=== PATIENT | male | born 1935 | race Caucasian/White ===

== ENCOUNTER 2016-11-26 08:37 | Day surgery (SDC) | payer MEDICARE, BC ==
[~2016-11-26] VITALS: Ht 177.8 cm; Wt 92.0 kg
[~2016-11-26 08:37] MED LIST: ACET325 PO; ALLO300T2 PO; CLIN1CAP6 PO; DIGO.25 PO; ECOT81TA2 PO; LIPI10TA PO; METO25 PO; PROT40TA PO; WARF2.5 PO
[2016-11-26] MEDS ORDERED: CARV3.12 PO (08:49)
[2016-11-26 09:04] VITALS: BP 131/104; PULSE 117; RESP 18; TEMP 97.8; O2SAT 95
[2016-11-26 09:10] LABS: AUTOMATED NEUTROPHIL # 4.2 TH/MM3 (1.8-7.7); BASOPHIL % 0.8 % (0.0-2.0); EOSINOPHIL # 0.3 TH/MM3 (0-0.4); EOSINOPHIL % 4.8 % (0.0-4.0); HEMATOCRIT 41.6 % (39.0-51.0); HEMO FLAGS DIFF FINAL; LYMPH % 14.7 % (9.0-44.0); LYMPHOCYTE # 0.9 TH/MM3 (1.0-4.8); MEAN CELL VOLUME 95.6 FL (80.0-100.0); MEAN CORPUSCULAR HEMOGLOBIN 31.6 PG (27.0-34.0); MONO % 10.2 % (0.0-8.0); NEUT % 69.5 % (16.0-70.0); PLATELET COUNT 146 TH/MM3 (150-450); RED BLOOD COUNT 4.35 MIL/MM3 (4.50-5.90); RED CELL DISTRIBUTION WIDTH 18.3 % (11.6-17.2); WHITE BLOOD COUNT 6.1 TH/MM3 (4.0-11.0)
[2016-11-26] MEDS ORDERED: SODIUM BICARBONATE 100 MEQ in D5W 1000 ML IV SCH (09:15)
[2016-11-26 09:24] LABS: APTT (PATIENT) 31.7 SEC (24.3-30.1); BICARBONATE 27.9 MEQ/L (21.0-32.0); POTASSIUM 3.8 MEQ/L (3.5-5.1); PROTHROMBIN TIME - PATIENT 22.4 SEC (9.8-11.6)
--- NOTE | 2016-11-26 09:53 | HHI.HP ---
History of Present Illness Chief Complaint: R LE pain with ambulation History of Present Illness 81 yo male with PAD and R LE pain with ambulation. Previously had R LE stent placed with resolution of pain. No rest pain/TL. Atherosclerotic risk factors of CAD, age, HTN, XOL. Past/Family/Social History Past Medical History CAD OA gout XOL Past Surgical History CABG eye surgery ortho procedures Social History former smoker Home Medications Active Scripts Digoxin 0.25 Mg Tab0.25 Mg PO DAILY #30 TAB Ref 1 Prov:Peter Ramon MD 02/02/15 Aspirin (Ecotrin Low Strength)81 Mg Tabec81 Mg PO DAILY@18 #30 TAB.EC Ref 1 Prov:Peter Ramon MD 01/03/15 Warfarin Sod (Coumadin)2.5 Mg Tab2.5 Mg PO DAILY@1600 #30 TAB Ref 1 Prov:Peter Ramon MD 01/03/15 Atorvastatin (Lipitor 10 Mg Tab)10 Mg Tab1 Tab PO HS #30 TAB Ref 1 Prov:Peter Ramon MD 01/03/15 Allopurinol 300 Mg Kff016 Mg PO DAILY #30 TAB Ref 1 Prov:Peter Ramon MD 01/03/15 Reported Medications Carvedilol 3.125 Mg Tab3.125 Mg PO BID #60 TAB Ref 0 11/26/16 Coded Allergies: Metoprolol (Verified Allergy, Severe, 11/26/16) Pradaxa (Verified Allergy, Severe, 03/01/15) Pletal (Verified Adverse Reaction, Unknown, SEVERE HEADACHE, 03/01/15) Review of Systems Constitutional: DENIES: Diaphoretic episodes, Fatigue, Fever, Weight gain, Weight loss, Chills, Dizziness, Change in appetite, Night Sweats Respiratory: DENIES: Apneas, Cough, Snoring, Wheezing, Hemoptysis, Sputum production, Shortness of breath Cardiovascular: DENIES: Chest pain, Palpitations, Syncope, Dyspnea on Exertion , PND, Lower Extremity Edema, Orthopnea, Claudication Musculoskeletal: COMPLAINS OF: Joint pain, Joint Swelling, Back pain Physical Exam Vitals/I&O Date Time Temp Pulse Resp B/P Pulse Ox O2 Delivery O2 Flow Rate FiO2 11/26/16 09:04 97.8 117 18 131/104 95 Neuro: alert, oriented, BECKMAN HEENT: NC/AT Neck: trachea midline Heart: irreg rate Lungs: clear B Vascular: palp femoral pulses Laboratory Tests Test 11/26/16 08:57 White Blood Count 6.1 Red Blood Count 4.35 Hemoglobin 13.7 Hematocrit 41.6 Mean Corpuscular Volume 95.6 Mean Corpuscular Hemoglobin 31.6 Mean Corpuscular Hemoglobin 33.0 Concent Red Cell Distribution Width 18.3 Platelet Count 146 Mean Platelet Volume 7.8 Neutrophils (%) (Auto) 69.5 Lymphocytes (%) (Auto) 14.7 Monocytes (%) (Auto) 10.2 Eosinophils (%) (Auto) 4.8 Basophils (%) (Auto) 0.8 Neutrophils # (Auto) 4.2 Lymphocytes # (Auto) 0.9 Monocytes # (Auto) 0.6 Eosinophils # (Auto) 0.3 Basophils # (Auto) 0.0 CBC Comment DIFF FINAL Differential Comment Prothrombin Time 22.4 Prothromb Time International 2.0 Ratio Activated Partial 31.7 Thromboplast Time Sodium Level 139 Potassium Level 3.8 Chloride Level 102 Carbon Dioxide Level 27.9 Anion Gap 9 Blood Urea Nitrogen 20 Creatinine 1.20 Estimat Glomerular Filtration 58 Rate Random Glucose 103 Calcium Level 8.9 Assessment and Plan Plan R LE claudication, likely SFA occlusion Plan for R LE angiogram Consent S&OC Zaki Parker MD Nov 26, 2016 09:53
[2016-11-26] MEDS ORDERED: IOHEXOL 350 MG/ML 50 ML BTL (for Cath Lab) OTHER ONE (10:21)
[2016-11-26] MEDS ORDERED: MIDAZOLAM HCL 2 MG/2 ML VIAL ONE (10:22)
[2016-11-26] MEDS ORDERED: HEPARIN-NS/PF INJ 500 ML ONE (10:22)
[2016-11-26] MEDS ORDERED: HEPARIN SODIUM - IV 10,000 UNITS/10 ML VIAL ONE (10:22)
--- NOTE | 2016-11-26 11:10 | HHI.PR ---
Immediate Post Op Note Procedure Date: Nov 26, 2016 Pre Op Diagnosis: R LE PAD, claudication Post Op Diagnosis: R LE PAD, claudication Surgeon: Zaki Parker Message And Delivery Service Pricer(s): none Procedure: Aortogram w/ R LE angiogram U/S guided access to [facility] Findings: occluded R SFA (TASC D) very calcified Additional Information: [facility] Angioseal Complications: none Specimen(s) removed: none Estimated blood loss: 10 mL Anesthesia: MAC Drains: None Patient to: Other (DOCU) Implant/Devices: SEE IMPLANT LOG (if applicable) Date/Time of Procedure: SEE SURGICAL CARE RECORD Zaki Parker MD Nov 26, 2016 11:10
--- NOTE | 2016-11-29 14:35 | MP ---
cc: MICHAEL PARKER MD DATE OF SURGERY: 11/26/2016 PREOPERATIVE DIAGNOSIS Right lower extremity claudication, peripheral arterial occlusive disease. POSTOPERATIVE DIAGNOSIS Right lower extremity claudication, peripheral arterial occlusive disease. PROCEDURE Aortogram with right lower extremity angiogram. ATTENDING SURGEON Michael Parker ANESTHESIA Local with sedation. INDICATIONS Mr. Molina is an 81-year-old gentleman who has right lower extremity claudication. He is taken to the operating room for angiographic evaluation and potentially treatment. There is no prior catheter-based imaging available for my review. DESCRIPTION OF PROCEDURE Informed consent was obtained from the patient. He was taken to the operating room and placed supine on the operating table. An appropriate timeout was taken to ensure the patient's identity, the operative site and planned procedure. The administration of antibiotics was not necessary as this was a clean procedure without planned implantation of any foreign object. Everyone in the room agreed with the timeout and we proceeded. Under ultrasonographic guidance the left common femoral artery was accessed with a 21-gauge micropuncture needle. This was exchanged using a Seldinger technique for a micropuncture sheath through which a 0.035 Glidewire was introduced. The micropuncture sheath was exchanged for a 5 Welsh sheath and a VCF catheter was placed over the wire into the sheath and aortogram and pelvic arteriograms obtained. The Glidewire was navigated down to the right common femoral artery. The VCF catheter was attempted to be passed across but because of tortuosity and calcifications, we had to go with a Berenstein slip catheter and this was navigated down into the right common femoral artery and the a right lower extremity angiogram was obtained. The wire, catheter and sheath were removed. The groin was closed with an Angio-Seal. There were no complications. I was present and scrubbed and performed the entire procedure. INTERPRETATION OF IMAGES The patient has patent, alignment aneurysmal infrarenal aorta. The common iliac arteries, external iliac arteries and hypogastric arteries are all widely patent, although densely calcified. The common femoral artery and profunda are patent on the right. The SFA occludes immediately after its takeoff and then reconstitutes via profunda based collaterals at the popliteal artery and there is three-vessel runoff to the foot. MD EDER Rivera/MELLISA /12:14 PM /2:12 PM [email or web address]
== END 2016-11-26 13:41 | disposition home or self-care (01) ==
LOC: HDIC 08:37 → HDOC 08:37
PROVIDERS: ATTEND Surgery
DX: I70.211 Atherosclerosis of native arteries of extremities with intermittent claudication, right leg (principal); I25.10 Atherosclerotic heart disease of native coronary artery without angina pectoris; I10 Essential (primary) hypertension; M10.9 Gout, unspecified; Z79.01 Long term (current) use of anticoagulants; Z79.82 Long term (current) use of aspirin; Z95.1 Presence of aortocoronary bypass graft; Z87.891 Personal history of nicotine dependence
CPT/HCPCS: 36246; 75625; 75710; 80048; 85025; 85610; 85730; C1769; C1893; J1644; J2250; J3010; Q9967

== ENCOUNTER 2018-10-08 11:01 | Inpatient (IN) ==
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
--- NOTE | 2018-10-08 11:57 | XR ---
EXAM DATE: 10/08/2018 11:41 AM EST AGE/SEX: 83 years / Male INDICATIONS: Short of breath for over a week. CLINICAL DATA: This is the patient's initial encounter. Patient reports that signs and symptoms have been present for 1 month and indicates a pain score of 0/10. MEDICAL/SURGICAL HISTORY: Hypercholesterolemia. Hypertension. A-fib. Gout. Former smoker. CAB G. Total knee replacement, right. Back surgery. COMPARISON: POI, XR CHEST PA AND LAT, 10/01/2018. . FINDINGS: Tracing density is identified in the right lung base. Increasing airspace disease is identified in th e left base. Heart is mildly enlarged. Postsurgical changes following CABG are noted. CONCLUSION: Increasing right pleural effusion which appears moderately large in size. Left basilar airspace disease. Underlying COPD. Electronically signed by: Jules Alfaro MD Board Certified Radiologist 10/08/2018 11:55 AM EST
[2018-10-08 11:59] LABS: Baso # (Auto) 0.1 th/mm3 (0.0-0.2); Baso % (Auto) 1.1 % (0.0-2.0); Eos # (Auto) 0.4 th/mm3 (0.0-0.4); Eos % (Auto) 5.8 % (0.0-4.0); Hemoglobin 11.5 gm/dL (13.0-17.0); Lymph # (Auto) 0.3 th/mm3 (1.0-4.8); Lymph % (Auto) 4.6 % (9.0-44.0); Mean Corpuscular HGB Conc 32.8 % (32.0-36.0); Mean Corpuscular Hemoglobin 31.6 pg (27.0-34.0); Mean Corpuscular Volume 96.3 fL (80.0-100.0); Mono # (Auto) 0.1 th/mm3 (0.0-0.9); Mono % (Auto) 1.4 % (0.0-8.0); Neut # (Auto) 6.3 th/mm3 (1.8-7.7); Neut % (Auto) 87.1 % (16.0-70.0); Platelet Count 294 th/mm3 (150-450); Red Blood Count 3.64 mil/mm3 (4.50-5.90); Red Cell Distribution Width 15.9 % (11.6-17.2); White Blood Count 7.2 th/mm3 (4.0-11.0)
[2018-10-08 12:16] LABS: Activated Partial Thrombo Time 52.3 sec (23.4-31.7); INR 2.7 Ratio; Prothrombin Time 26.8 sec (9.8-11.6)
[2018-10-08 12:22] LABS: Chloride 101 meq/L (98-107); Potassium 4.5 meq/L (3.5-5.1); Sodium 135 meq/L (136-145)
[2018-10-08 12:32] LABS: Albumin 2.9 g/dL (3.4-5.0); Anion Gap 8 meq/L (5-15); Blood Urea Nitrogen 44 mg/dL (7-18); Calcium 8.7 mg/dL (8.5-10.1); Carbon Dioxide 25.7 meq/L (21.0-32.0); Glucose,Random 106 mg/dL (74-106)
[2018-10-08 12:35] LABS: Alanine Aminotransferase 21 U/L (12-78); Aspartate Aminotransferase 21 U/L (15-37); Glomerular Filtration Rate 38 mL/min (>89)
[2018-10-08 12:37] LABS: Alkaline Phosphatase 84 U/L (45-117)
[2018-10-08 12:40] LABS: Troponin I 0.18 ng/mL (0.02-0.05)
[2018-10-08] MEDS ORDERED: Zolpidem Tartrate 5 MG Tablet PO PRN (13:05)
[2018-10-08] MEDS ORDERED: Acetaminophen 325 MG Tablet PO PRN (13:05)
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
[2018-10-08 13:49] LABS: Bilirubin,Urine Negative (Negative); Clarity,Urine Clear (Clear); Color,Urine Yellow (Yellw/Straw); Glucose,Urine (UA) Negative (Negative); Leukocyte Esterase,Urine Trace (Negative); Nitrite,Urine Negative (Negative); PH,Urine 5.5 (5.0-8.5); Urobilinogen,Urine 0.2 mg/dL (Less than 2)
[2018-10-08 13:57] LABS: RBC,Urine 0-3 /hpf (0-3)
[2018-10-08 13:58] LABS: WBC,Urine 0-5 /hpf (0-5)
[2018-10-09 06:07] LABS: Chloride 103 meq/L (98-107); INR 2.7 Ratio; Potassium 4.4 meq/L (3.5-5.1); Prothrombin Time 27.5 sec (9.8-11.6); Sodium 137 meq/L (136-145)
[2018-10-09 06:13] LABS: Calcium 8.6 mg/dL (8.5-10.1)
[2018-10-09 06:14] LABS: Albumin 2.7 g/dL (3.4-5.0); Anion Gap 9 meq/L (5-15); Blood Urea Nitrogen 42 mg/dL (7-18); Carbon Dioxide 25.4 meq/L (21.0-32.0); Glucose,Random 87 mg/dL (74-106)
[2018-10-09 06:17] LABS: Alanine Aminotransferase 21 U/L (12-78); Aspartate Aminotransferase 21 U/L (15-37); Glomerular Filtration Rate 48 mL/min (>89)
[2018-10-09 06:19] LABS: Total Protein 6.5 g/dL (6.4-8.2)
[2018-10-09 06:20] LABS: Alkaline Phosphatase 79 U/L (45-117)
[2018-10-09 06:40] LABS: Baso % (Auto) 0.5 % (0.0-2.0); Eos # (Auto) 0.5 th/mm3 (0.0-0.4); Eos % (Auto) 7.9 % (0.0-4.0); Hematocrit 34.3 % (39.0-51.0); Hemoglobin 11.1 gm/dL (13.0-17.0); Lymph # (Auto) 0.5 th/mm3 (1.0-4.8); Mean Corpuscular HGB Conc 32.6 % (32.0-36.0); Mean Corpuscular Hemoglobin 31.5 pg (27.0-34.0); Mean Corpuscular Volume 96.9 fL (80.0-100.0); Mean Platelet Volume 8.2 fL (7.0-11.0); Mono # (Auto) 0.6 th/mm3 (0.0-0.9); Mono % (Auto) 9.3 % (0.0-8.0); Neut # (Auto) 4.5 th/mm3 (1.8-7.7); Neut % (Auto) 73.3 % (16.0-70.0); Platelet Count 279 th/mm3 (150-450); Red Blood Count 3.54 mil/mm3 (4.50-5.90); Red Cell Distribution Width 16.3 % (11.6-17.2); White Blood Count 6.1 th/mm3 (4.0-11.0)
[2018-10-09] MEDS: Digoxin 125 MCG Tablet PO SCH (08:48)
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
--- NOTE | 2018-10-09 10:51 | ECG ---
Date Performed: 10/08/2018 Time Performed: 17:48:14 PTAGE: 83 years EKG: ATRIAL FIBRILLATION WITH ABERRANT CONDUCTION OR VENTRICULAR PREMATURE COMPLEXES RIGHT BUNDL E BRANCH BLOCK POSSIBLE ANTEROLATERAL MYOCARDIAL INFARCTION, AGE UNDETERMINED ABNORMAL ECG PREVIOUS TRACING : 10/08/2018 11.41 No significant change from previous tracing noted. DOCTOR: Todd Rabago Interpretating Date/Time 10/09/2018 10:50:30
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
--- NOTE | 2018-10-09 16:21 | ECG ---
Date Performed: 10/08/2018 Time Performed: 11:41:18 PTAGE: 83 years EKG: ATRIAL FIBRILLATION INDETERMINATE AXIS RIGHT BUNDLE BRANCH BLOCK POSSIBLE LATERAL MYOCARDIA L INFARCTION AGE UNDETERMINED ABNORMAL ECG PREVIOUS TRACING : 12/17/2014 07.06 Compared to previous tracing, QRS duration has increased, Q RS voltage has increased diffusely. DOCTOR: Todd Rabago Interpretating Date/Time 10/09/2018 16:19:39
[2018-10-10 07:57] LABS: Baso # (Auto) 0.1 th/mm3 (0.0-0.2); Baso % (Auto) 1.5 % (0.0-2.0); Eos # (Auto) 0.4 th/mm3 (0.0-0.4); Hematocrit 36.3 % (39.0-51.0); Hemoglobin 11.6 gm/dL (13.0-17.0); Lymph # (Auto) 0.9 th/mm3 (1.0-4.8); Lymph % (Auto) 14.1 % (9.0-44.0); Mean Corpuscular HGB Conc 32.1 % (32.0-36.0); Mean Corpuscular Volume 96.7 fL (80.0-100.0); Mean Platelet Volume 7.6 fL (7.0-11.0); Mono # (Auto) 0.6 th/mm3 (0.0-0.9); Mono % (Auto) 9.1 % (0.0-8.0); Neut # (Auto) 4.1 th/mm3 (1.8-7.7); Neut % (Auto) 68.3 % (16.0-70.0); Platelet Count 282 th/mm3 (150-450); Red Blood Count 3.75 mil/mm3 (4.50-5.90); Red Cell Distribution Width 16.1 % (11.6-17.2); White Blood Count 6.1 th/mm3 (4.0-11.0)
[2018-10-10 08:09] LABS: Potassium 4.4 meq/L (3.5-5.1)
[2018-10-10 08:11] LABS: Calcium 8.8 mg/dL (8.5-10.1)
[2018-10-10 08:12] LABS: Carbon Dioxide 28.1 meq/L (21.0-32.0); INR 2.7 Ratio; Prothrombin Time 26.9 sec (9.8-11.6)
[2018-10-10] MEDS: Digoxin 125 MCG Tablet PO SCH (08:45)
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
[2018-10-10] MEDS ORDERED: Phytonadione 5 MG/SWFI 5 ML Oral Syringe PO ONE (10:00)
--- NOTE | 2018-10-10 15:35 | P.PN ---
Subjective Interval history: alert no sob at rest Physical Exam Vital signs: Vital Signs 10/09/18 16:00 10/09/18 16:39 10/09/18 20:00 Temperature 97.2 F L 97.6 F Pulse Rate 83 87 68 Respiratory Rate 17 17 Blood Pressure 106/73 107/58 L Pulse Oximetry 96 94 L 10/09/18 20:05 10/10/18 00:00 10/10/18 04:00 Temperature 98.1 F 96.6 F L Pulse Rate 97 H 71 Respiratory Rate 18 17 Blood Pressure 103/69 103/70 Pulse Oximetry 94 L 93 L 94 L 10/10/18 07:51 10/10/18 08:00 10/10/18 09:00 Temperature 96.9 F L Pulse Rate 83 75 Respiratory Rate 20 Blood Pressure 104/65 Pulse Oximetry 95 95 10/10/18 12:00 Temperature 98.2 F Pulse Rate 86 Respiratory Rate 20 Blood Pressure 116/65 Pulse Oximetry 94 L Intake & Output 10/09/18 10/10/18 10/10/18 18:59 06:59 18:59 Intake Total 1080 / 1080 150 / 150 Output Total 240 / 240 Balance 1080 / 1080 -90 / -90 Weight 85 kg Intake: Oral 1080 / 1080 150 / 150 Output: Urine 240 / 240 Other: # Voids 6 Date of Last Bowel Movement 10/08/18 10/09/18 # Bowel Movements 1 Narrative: GENERAL: Well-developed male in no apparent distress. SKIN: Focused skin assessment warm/dry. HEAD: Atraumatic. Normocephalic. EYES: Pupils equal and round. No scleral icterus. No injection or drainage. ENT: No nasal bleeding or discharge. Mucous membranes pink and moist. NECK: Trachea midline. No JVD. CARDIOVASCULAR: Regular rate and rhythm. Systolic murmur appreciated. RESPIRATORY: No accessory muscle use. Clear to auscultation on the left. Breath sounds diminished on the right side. GASTROINTESTINAL: Abdomen soft, non-tender, nondistended. Hepatic and splenic margins not palpable. MUSCULOSKELETAL: No obvious deformities. No clubbing. No cyanosis. No edema. NEUROLOGICAL: Awake and alert. No obvious cranial nerve deficits. Motor grossly within normal limits. Normal speech. PSYCHIATRIC: Appropriate mood and affect; insight and judgment normal. Results - Labs CBC & Chem 7: 10/10/18 06:40 10/10/18 06:40 Laboratory Results - last 24 hr 10/10/18 10/10/18 10/10/18 06:40 06:40 06:40 CBC w Diff Auto diff final WBC 6.1 RBC 3.75 L Hgb 11.6 L Hct 36.3 L MCV 96.7 MCH 31.0 MCHC 32.1 RDW 16.1 Plt Count 282 MPV 7.6 Neut % (Auto) 68.3 Lymph % (Auto) 14.1 [place] % (Auto) 9.1 H Eos % (Auto) 7.0 H Baso % (Auto) 1.5 Neut # (Auto) 4.1 Lymph # (Auto) 0.9 L [place] # (Auto) 0.6 Eos # (Auto) 0.4 Baso # (Auto) 0.1 WBC Differential . Differential Comment . PT 26.9 H INR 2.7 Sodium 136 Potassium 4.4 Chloride 102 Carbon Dioxide 28.1 Anion Gap 6 BUN 35 H Creatinine 1.30 Estimated GFR 52 L Random Glucose 87 Calcium 8.8 Microbiology 10/08/18 11:35 Blood - Peripheral Aerobic Blood Culture - Preliminary No growth in 2 days 10/08/18 11:35 Blood - Peripheral Anaerobic Blood Culture - Preliminary No growth in 2 days 10/08/18 11:42 Blood - Peripheral Aerobic Blood Culture - Preliminary No growth in 2 days 10/08/18 11:42 Blood - Peripheral Anaerobic Blood Culture - Preliminary No growth in 2 days Assessment and Plan - Plan enlarging right pleural effusion chf plan for thoracentesis when inr appropriate
[2018-10-11 07:28] LABS: INR 1.7 Ratio; Prothrombin Time 17.2 sec (9.8-11.6)
[2018-10-11] MEDS: Digoxin 125 MCG Tablet PO SCH (08:38)
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
[2018-10-11] MEDS: Heparin - SQ 10,000 UNITS/ML Vial SQ SCH ×2 (10:05→14:47)
[2018-10-11 16:47] LABS: INR 1.5 Ratio; Prothrombin Time 14.7 sec (9.8-11.6)
--- NOTE | 2018-10-11 16:51 | P.PN ---
Subjective Interval history: ALERT NAD Physical Exam Vital signs: Vital Signs 10/10/18 20:00 10/11/18 00:00 10/11/18 04:00 Temperature 98.5 F 96.7 F L 97.2 F L Pulse Rate 80 97 H 70 Respiratory Rate 20 20 20 Blood Pressure 104/63 134/74 98/53 L Pulse Oximetry 94 L 95 95 10/11/18 08:00 10/11/18 08:38 10/11/18 09:00 Temperature 96.9 F L Pulse Rate 69 86 Respiratory Rate 20 Blood Pressure 98/57 L Pulse Oximetry 95 95 10/11/18 12:00 10/11/18 12:38 10/11/18 15:58 Temperature 97.1 F L 96.1 F L Pulse Rate 75 68 71 Respiratory Rate 20 20 Blood Pressure 105/60 133/69 Pulse Oximetry 94 L 94 L Intake & Output 10/10/18 10/11/18 10/11/18 18:59 06:59 18:59 Intake Total 690 / 690 Output Total 100 / 100 Balance 690 / 690 -100 / -100 Weight 85 kg Intake: Oral 690 / 690 Output: Urine 100 / 100 Other: # Voids 5 Date of Last Bowel Movement 10/09/18 10/10/18 Narrative: GENERAL: Well-developed male in no apparent distress. SKIN: Focused skin assessment warm/dry. HEAD: Atraumatic. Normocephalic. EYES: Pupils equal and round. No scleral icterus. No injection or drainage. ENT: No nasal bleeding or discharge. Mucous membranes pink and moist. NECK: Trachea midline. No JVD. CARDIOVASCULAR: Regular rate and rhythm. Systolic murmur appreciated. RESPIRATORY: No accessory muscle use. Clear to auscultation on the left. Breath sounds diminished on the right side. GASTROINTESTINAL: Abdomen soft, non-tender, nondistended. Hepatic and splenic margins not palpable. MUSCULOSKELETAL: No obvious deformities. No clubbing. No cyanosis. No edema. NEUROLOGICAL: Awake and alert. No obvious cranial nerve deficits. Motor grossly within normal limits. Normal speech. PSYCHIATRIC: Appropriate mood and affect; insight and judgment normal. Results - Labs CBC & Chem 7: 10/10/18 06:40 10/10/18 06:40 Laboratory Results - last 24 hr 10/11/18 10/11/18 06:30 16:25 PT 17.2 H 14.7 H INR 1.7 1.5 Microbiology 10/08/18 11:35 Blood - Peripheral Aerobic Blood Culture - Preliminary No growth in 3 days 10/08/18 11:35 Blood - Peripheral Anaerobic Blood Culture - Preliminary No growth in 3 days 10/08/18 11:42 Blood - Peripheral Aerobic Blood Culture - Preliminary No growth in 3 days 10/08/18 11:42 Blood - Peripheral Anaerobic Blood Culture - Preliminary No growth in 3 days Assessment and Plan - Plan enlarging right pleural effusion chf plan for thoracentesis when inr appropriate
[2018-10-11] MEDS ORDERED: Enoxaparin Inj 80 MG/0.8 ML Syringe SQ ONE (21:00)
[2018-10-12 06:11] LABS: INR 1.4 Ratio; Prothrombin Time 13.7 sec (9.8-11.6)
[2018-10-12] MEDS: Digoxin 125 MCG Tablet PO SCH (09:09)
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
--- NOTE | 2018-10-12 14:51 | XR ---
EXAM DATE: 10/12/2018 2:44 PM EST AGE/SEX: 83 years / Male INDICATIONS: Right sided thoracentesis CLINICAL DATA: This is the patient's subsequent encounter. Patient reports that signs and symptoms h ave been present for 1 week and indicates a pain score of 0/10. MEDICAL/SURGICAL HISTORY: . Hypercholesterolemia. Hypertension. A-fib. Gout. Former smoker. . CABG. Total knee replacement, right. Back surgery. COMPARISON: [facility], CHEST 1V SINGLE AP, 10/08/2018. . FINDINGS: Sternal wires from previous bypass are noted. The heart is enlarged. There is moderate interstitial edema without significant pleural effusion or a lveolar consolidation. The portion of the bony skeleton visualized is unremarkable. CONCLUSION: Moderate congestive failure without significant pleural effusion Electronically signed by: Zahc Bass MD Board Certified Radiologist 10/12/2018 2:50 PM EST
--- NOTE | 2018-10-12 14:58 | CT ---
EXAM DATE: 10/12/2018 2:48 PM EST AGE/SEX: 83 years / Male INDICATIONS: Follow up to thoracentesis, right side. CLINICAL DATA: This is the patient's initial encounter. Patient reports that signs and symptoms have been present for 1 day and indicates a pain score of 0/10. MEDICAL/SURGICAL HISTORY: Hypercholesterolemia. Peripheral vascular disease. Cardiovascular disea se. Hypertension. CABG. Back surgery. Bilateral knee repair. RADIATION DOSE: 13.26 CTDI (mGy) COMPARISON: No prior exams available for comparison. TECHNIQUE: Multiple contiguous axial images were obtained through the chest without contrast. Image s were obtained in suspended respiration using multiple row detector helical technique. Using automa trent exposure control and adjustment of the mA and/or kV according to patient size, radiation dose was kept as low as reasonably achievable to obtain optimal diagnostic quality images. DICOM format imag e data is available electronically for review and comparison. FINDINGS: Lungs: Patchy consolidation is noted within the right lower lobe and to a much lesser extent left jody ng base consistent with possible pneumonia. Mild diffuse peripheral interstitial fibrosis is noted. Mediastinum: The heart is markedly enlarged. Coronary artery calcifications are noted. No mediastina l or hilar lymphadenopathy is noted. Pleurae: Small right pleural effusion is noted. Axillae: Unremarkable. Bony Structures: Unremarkable. Miscellaneous: The examination was extended to include the upper abdomen, and both adrenal glands ar e normal in size and configuration. CONCLUSION: 1. Small right pleural effusion. 2. Patchy consolidation is noted within the right lower lobe and to a much lesser extent left lung b ase consistent with possible pneumonia. Clinical correlation is recommended. 3. Mild diffuse peripheral interstitial fibrosis. 4. Markedly enlarged heart with coronary artery calcifications. Electronically signed by: Zaki Fleming MD Board Certified Radiologist 10/12/2018 2:56 PM EST
--- NOTE | 2018-10-12 15:57 | P.PN ---
Subjective Interval history: ALERT NO SOB THORACENTESIS DONE WELL TOLERATED Physical Exam Vital signs: Vital Signs 10/11/18 15:58 10/11/18 20:00 10/11/18 22:08 Temperature 96.1 F L 96.7 F L Pulse Rate 71 84 Respiratory Rate 20 20 Blood Pressure 133/69 131/83 Pulse Oximetry 94 L 95 92 L 10/12/18 00:00 10/12/18 00:48 10/12/18 04:00 Temperature 98.6 F 97.3 F L Pulse Rate 84 89 78 Respiratory Rate 20 18 Blood Pressure 112/68 108/61 Pulse Oximetry 96 95 10/12/18 07:53 10/12/18 08:00 10/12/18 12:00 Temperature 97.0 F L 97.7 F Pulse Rate 97 H 80 Respiratory Rate 21 20 Blood Pressure 116/72 Pulse Oximetry 95 95 96 Intake & Output 10/11/18 10/12/18 10/12/18 18:59 06:59 18:59 Intake Total 1080 / 1080 0 / 0 Output Total 120 / 120 Balance 1080 / 1080 -120 / -120 0 / 0 Weight 85 kg Intake: Oral 1080 / 1080 0 / 0 Output: Urine 120 / 120 Other: # Voids 8 Date of Last Bowel Movement 10/10/18 10/10/18 Narrative: GENERAL: Well-developed male in no apparent distress. SKIN: Focused skin assessment warm/dry. HEAD: Atraumatic. Normocephalic. EYES: Pupils equal and round. No scleral icterus. No injection or drainage. ENT: No nasal bleeding or discharge. Mucous membranes pink and moist. NECK: Trachea midline. No JVD. CARDIOVASCULAR: Regular rate and rhythm. Systolic murmur appreciated. RESPIRATORY: No accessory muscle use. Clear to auscultation on the left. Breath sounds diminished on the right side. GASTROINTESTINAL: Abdomen soft, non-tender, nondistended. Hepatic and splenic margins not palpable. MUSCULOSKELETAL: No obvious deformities. No clubbing. No cyanosis. No edema. NEUROLOGICAL: Awake and alert. No obvious cranial nerve deficits. Motor grossly within normal limits. Normal speech. PSYCHIATRIC: Appropriate mood and affect; insight and judgment normal. Results - Labs CBC & Chem 7: 10/10/18 06:40 10/10/18 06:40 Laboratory Results - last 24 hr 10/11/18 10/12/18 16:25 04:57 PT 14.7 H 13.7 H INR 1.5 1.4 Microbiology 10/08/18 11:35 Blood - Peripheral Aerobic Blood Culture - Preliminary No growth in 4 days 10/08/18 11:35 Blood - Peripheral Anaerobic Blood Culture - Preliminary No growth in 4 days 10/08/18 11:42 Blood - Peripheral Aerobic Blood Culture - Preliminary No growth in 4 days 10/08/18 11:42 Blood - Peripheral Anaerobic Blood Culture - Preliminary No growth in 4 days - Imaging Impressions Chest CT 10/12/18 00:00 CONCLUSION: 1. Small right pleural effusion. 2. Patchy consolidation is noted within the right lower lobe and to a much lesser extent left lung base consistent with possible pneumonia. Clinical correlation is recommended. 3. Mild diffuse peripheral interstitial fibrosis. 4. Markedly enlarged heart with coronary artery calcifications. Chest X-Ray 10/12/18 00:00 CONCLUSION: Moderate congestive failure without significant pleural effusion Assessment and Plan - Plan enlarging right pleural effusion chf POST THORACENTESIS plan CHECK FLUID RESULTS
--- NOTE | 2018-10-12 16:21 | US ---
EXAM DATE: 10/12/2018 3:58 PM EST AGE/SEX: 83 years / Male INDICATIONS: Right pleural effusion. CLINICAL DATA: This is the patient's initial encounter. Patient reports that signs and symptoms have been present for 2 weeks and indicates a pain score of 0/10. MEDICAL/SURGICAL HISTORY: Hypercholesterolemia. Hypertension. Atrial fibrillation. Coronary ar rhonda disease. GOUT. Skin cancer. Peripheral vascular disease. Carpal tunnel syndrome. CABG. Back medina rgery. Bilateral knee replacement. COMPARISON: . Proceduralist: EULALIO Tellez FLUID: Total volume of 2,000 cc of cloudy, red fluid was removed. Fluid was sent to lab for ordered studies. . . TECHNIQUE: Ultrasound guidance for thoracentesis. Thoracentesis. The risks, benefits, and alternatives to ultrasound guided thoracentesis were explained to the patien t in lay simple terms, including the risk of bleeding and infection. Written and verbal informed con sent was obtained. Appropriate area for right thoracentesis was marked under ultrasound guidance with the patient in the upright position. Overlying skin was prepped and draped in the usual sterile fashion and with local anesthetic, a dermatotomy was made with an 11 blade scalpel. A 6 Citizen [place] thoracentesis catheter was placed in the pleural space and fluid was removed. Catheter was then removed and a sterile dressing applied. There were no immediate complications. The patient tolerated the procedure well and the lef t the ultrasound suite in stable condition. Chest radiograph is to be obtained. FINDINGS: Adequate fluid for thoracentesis. CONCLUSION: 1. Uncomplicated thoracentesis. Electronically signed by: Mateusz Ellis MD Board Certified Radiologist 10/12/2018 4:20 PM Juanita
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
[2018-10-12] MEDS: Furosemide 20 MG Tablet PO SCH (16:57)
[2018-10-12 18:57] LABS: Eosinophils,Pleural Fluid 8 %; Lymphocytes,Pleural Fluid 86 %; Neutrophils,Pleural Fluid 6 %; RBC,Pleural Fluid 21650 /mm3 (0-0)
[2018-10-12 20:21] LABS: Total Protein,Pleural Fluid 4.3 gm/dL
[2018-10-13 00:46] VITALS: RESP 20
[2018-10-13 06:54] LABS: INR 1.2 Ratio; Prothrombin Time 12.6 sec (9.8-11.6)
[2018-10-13 08:02] VITALS: O2SAT 94
--- NOTE | 2018-10-13 08:38 | P.PNIM ---
Subjective Interval history: patient clinically improved, no shortness of breath. s/p thoracocentesis, apparently was just a hemorrhagic pleural effusion likely due to trauma occasioned by contusion. seen by pulmonary this am, cleared for dc. Physical Exam Vital signs: Last Vital Signs Temp 97.3 F L 10/13/18 04:00 Pulse 83 10/13/18 04:00 Resp 20 10/13/18 04:00 BP 107/74 10/13/18 04:00 Pulse Ox 94 L 10/13/18 08:02 Intake & Output 10/11/18 10/12/18 10/13/18 10/14/18 06:59 06:59 06:59 06:59 Intake Total 690 / 690 1080 / 1080 605 / 605 Output Total 100 / 100 120 / 120 200 / 200 Balance 590 / 590 960 / 960 405 / 405 Weight 85 kg 85 kg 81.6 kg Narrative: GENERAL: Well-developed male in no apparent distress. SKIN: Focused skin assessment warm/dry. HEENT: not pale,anicteric. CARDIOVASCULAR: Regular rate and rhythm. Systolic murmur appreciated. RESPIRATORY: No accessory muscle use. Clear to auscultation on the left. Breath sounds diminished on the right side. GASTROINTESTINAL: Abdomen soft, non-tender, nondistended. Hepatic and splenic margins not palpable. MUSCULOSKELETAL: No obvious deformities. No clubbing. No cyanosis. No edema. NEUROLOGICAL: Awake and alert. Normal speech.no focal deficits. PSYCHIATRIC: Appropriate mood and affect; insight and judgment normal. Results Labs CBC & Chem 7: 10/10/18 06:40 10/10/18 06:40 Labs: Microbiology 10/08/18 11:35 Blood - Peripheral Aerobic Blood Culture - Preliminary No growth in 4 days 10/08/18 11:35 Blood - Peripheral Anaerobic Blood Culture - Preliminary No growth in 4 days 10/08/18 11:42 Blood - Peripheral Aerobic Blood Culture - Preliminary No growth in 4 days 10/08/18 11:42 Blood - Peripheral Anaerobic Blood Culture - Preliminary No growth in 4 days Imaging Imaging: Impressions Chest CT 10/12/18 00:00 CONCLUSION: 1. Small right pleural effusion. 2. Patchy consolidation is noted within the right lower lobe and to a much lesser extent left lung base consistent with possible pneumonia. Clinical correlation is recommended. 3. Mild diffuse peripheral interstitial fibrosis. 4. Markedly enlarged heart with coronary artery calcifications. Chest X-Ray 10/12/18 00:00 CONCLUSION: Moderate congestive failure without significant pleural effusion Thoracentesis Ultrasound 10/12/18 00:00 CONCLUSION: 1. Uncomplicated thoracentesis. Procedures Procedures: Thoracentesis Assessment and Plan (1) Pleural effusion, right: Code(s): J90 - Pleural effusion, not elsewhere classified Status: Acute Plan Patient presented with rt pleural effusion. Progress Note: Quality VTE Deep Vein Thrombosis/Pulmonary Embolism Present on Admission: No
[2018-10-13] MEDS: Digoxin 125 MCG Tablet PO SCH (08:46)
[2018-10-13] MEDS: Furosemide 20 MG Tablet PO SCH (08:46)
[2018-10-13 08:50] VITALS: BP 110/69; TEMP 97.8
[2018-10-13 09:19] VITALS: PULSE 97
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
== END 2018-10-13 10:28 | disposition home or self-care (01) ==
LOC: PHED 11:01 → PHEDA 12:34 → PH3 13:52
PROVIDERS: ADMIT Hospitalist; ATTEND Hospitalist